=== PATIENT | female | born 1995 | race Caucasian/White ===

== ENCOUNTER 2021-12-23 10:04 | Emergency (ER) | payer BC, SELFPAY ==
[2021-12-23 10:14] VITALS: BP 127/86; PULSE 77; RESP 16; TEMP 36.8; O2SAT 100
--- NOTE | 2021-12-23 10:22 | ED.GENADULT ---
HPI - General Adult General Chief complaint: Extremity Injury, Upper Stated complaint: Right shoulder pain Time Seen by Provider: 12/23/21 10:23 Source: patient Mode of arrival: ambulatory Limitations: no limitations History of Present Illness HPI narrative: 26-year-old female presented for complaint of right anterior shoulder pain, onset yesterday. She also endorses feeling the pain last week, it went away on its own and then came back after lifting several boxes yesterday. Last night pain radiated to the right hand. Rating pain 2/10, and hears popping when rotating at the shoulder. She denies decreased range of motion but states it is more painful when dressing herself/ hand to spine movement. She denies numbness, tingling, or weakness to the extremity. She has not taken anything for symptoms. She endorses she is ambidextrous but has a history of playing sports using the right arm for throwing. Related Data Allergies Allergy/AdvReac Type Severity Reaction Status Date / Time varicella virus vaccine live Allergy Unknown Verified 12/23/21 10:17 Review of Systems Review of Systems: CONSTITUTIONAL: Denies body aches, fever, chills EYES: Denies visual changes ENT: Denies rhinorrhea, congestion CARDIOVASCULAR: Denies chest pain, palpitations, or edema. RESPIRATORY: Denies cough or dyspnea. GASTROINTESTINAL: Denies abdominal pain, nausea, vomiting, or diarrhea. SKIN: Denies rash, itching, or wounds. MUSCULOSKELETAL: Endorses right shoulder pain NEUROLOGIC: Denies headache, numbness, tingling, or weakness. PSYCH: Denies depression or anxiety. All systems reviewed & are unremarkable except as noted in HPI and below PMFSH Comments At time of signature, I have reviewed and agree with nursing past medical, surgical, social and family history unless otherwise noted. Please see nursing chart for further information. There is no relevant family history pertinent to the presenting complaint Exam Narrative: GENERAL: Well-appearing, well-nourished, and in no acute distress. HEAD: Normocephalic, atraumatic. EYES: PERRLA, conjunctivae clear NECK: Supple. CHEST: Speaks in full sentences. No respiratory distress. HEART: Regular rate and rhythm. Normal and equal peripheral pulses. EXTREMITIES: RUE has normal strength and sensation, full range of motion to UE's, but reports pain to anterior shoulder with medial rotation placing hand to spine, mild tenderness with palpation over anterior deltoid. no edema or ecchymosis. 5/5 strength with flexion and extension. No point tenderness. No open wounds, no skin tenting, no obvious deformity. Distal pulses palpable and equal bilaterally, skin warm, dry, pink. Capillary refill less than 3 seconds. SKIN: Warm, dry, no rash. NEURO: Alert and oriented x3. PSYCH: Normal mood and affect Course Course Emergency Course: Given presentation and exam, will defer imaging at this time. she is aware to f/u with pcp or PT/chiro for further recommendations if needed. Patient is aware of diagnosis, understands and agrees to treatment plan. Anticipatory guidance given. Patient agrees to follow-up as directed and is aware of reasons to seek care at the emergency department. Portions of this record may have been created with voice recognition software Level of Care: Express Care Visit Vital Signs Vital signs: Vital Signs Temperature 98.2 F 12/23/21 10:14 Pulse Rate 77 12/23/21 10:14 Respiratory Rate 16 12/23/21 10:14 Blood Pressure 127/86 12/23/21 10:14 Pulse Oximetry 100 12/23/21 10:14 Temperature 98.2 F 12/23/21 10:14 Pulse Rate 77 12/23/21 10:14 Respiratory Rate 16 12/23/21 10:14 Blood Pressure 127/86 12/23/21 10:14 Pulse Oximetry 100 12/23/21 10:14 Reviewed Medical Decision Making Differential Diagnosis Differential Diagnosis: Shoulder dislocation, clavicle fracture, humerus fracture, scapular fracture, acromioclavicular joint injury, rotator cuff tear, bicep tend
== END 2021-12-23 10:41 | disposition home or self-care (01) ==
PROVIDERS: Emergency Provider Nurse Practitioner Family
DX: S46.911A Strain of unspecified muscle, fascia and tendon at shoulder and upper arm level, right arm, initial encounter (principal); X50.3XXA Overexertion from repetitive movements, initial encounter
CPT/HCPCS: 99213; G0463

== ENCOUNTER 2024-03-31 14:39 | Outpatient (CLI) | payer BC, SELFPAY ==
--- NOTE | ~2024-03-31 | US_ITS ---
US breast RT complete DATE: 03/31/2024 14:55 INDICATION: 9:00 breast lump, right breast pain TECHNIQUE: Real-time imaging of complete right breast including all 4 quadrants and subareolar area COMPARISON: None FINDINGS: No suspicious mass or shadowing is detected. No cyst or other sylvian sonographic abnormali ty. IMPRESSION: BI-RADS Category 1: Negative Recommendation: Routine mammographic screening beginning at age 40 unless there are earlier symptoms or physical findings Reviewed, dictated and finalized at [facility]. Reviewed, dictated and finalized at [facility].
== END 2024-03-31 14:40 ==
LOC: MICIMG 14:41
PROVIDERS: PCP Nurse Practitioner; Visit Provider Nurse Practitioner
DX: N64.4 Mastodynia (principal)
CPT/HCPCS: 76641